=== PATIENT | male | born 2000 | race Caucasian/White ===

== ENCOUNTER 2023-02-25 16:12 | Emergency (ER) | payer OTHER ==
[~2023-02-25] VITALS: Ht 185.4 cm; Wt 68.2 kg
[2023-02-25 18:35] LABS: COLLECTION METHOD CLEAN CATCH
[2023-02-25 19:02] LABS: URINE APPEARANCE Clear (CLEAR/HAZY); URINE BLOOD Negative (NEGATIVE); URINE COLOR Yellow (YELLOW); URINE GLUCOSE Negative (NEGATIVE); URINE KETONE Negative (NEGATIVE); URINE NITRATE Negative (NEGATIVE); URINE PROTEIN(semi-quant) Negative (NEGATIVE); URINE UROBILINOGEN 0.2 E.U/dL (0.2-1.0)
[2023-02-25 19:03] LABS: SQUAMOUS EPITHELIAL None Seen /hpf (0-10); URINE BACTERIA None Seen /hpf (NONE SEEN); URINE RBC 0-2 /hpf (0-2)
[2023-02-25] MEDS ORDERED: FLEXERIL 1010 MG/TAB PO (19:58)
[2023-02-25 20:54] VITALS: BP 111/71; PULSE 101; TEMP 98.7
== END 2023-02-25 20:55 | disposition home or self-care (01) ==
LOC: COL.ER 16:12
PROVIDERS: Emergency Medicine
DX: M54.16 Radiculopathy, lumbar region (principal); F17.290 Nicotine dependence, other tobacco product, uncomplicated
CPT/HCPCS: J1885; J2360